=== PATIENT | female | born 2000 | race Caucasian/White ===

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

== ENCOUNTER 2021-03-22 05:51 | Emergency (ER) | payer OTHER, SELFPAY ==
--- NOTE | ~2021-03-22 | XR_ITS ---
XR chest 1V portable INDICATION: Chest pain TECHNIQUE: 2 view chest. FINDINGS: Comparison to multiple prior studies sequentially, with oldest reviewed study dated 006. There is mild left interstitial prominence and peribronchial cuffing. There is no focal consolidatio n, pleural effusion, or pneumothorax. The cardiomediastinal silhouette is normal. IMPRESSION: 1. Findings most consistent with bronchiolitis versus an atypical or viral pneumonia. Reviewed, dictated and finalized at location A. [employer] [employer] IMPRESSION: 1. Findings most consistent with bronchiolitis versus an atypical or viral pne [facility].
[2021-03-22 05:54] VITALS: BP 132/79; PULSE 88; RESP 16; TEMP 35.9; O2SAT 100
[2021-03-22 06:09] VITALS: O2SAT 99
--- NOTE | 2021-03-22 07:16 | ED.URI ---
HPI - URI/Sore Throat General Chief Complaint: Upper Respiratory Infection Stated Complaint: cough, fever, chest tightness Time Seen by Provider: 03/22/21 07:08 Source: patient Mode of arrival: ambulatory Limitations: no limitations History of Present Illness HPI Narrative: Patient is a 20-year-old female complaining of cough, nasal congestion, fever and chills that started 5 days ago. Patient states that her middle of her chest hurts when she coughs. Cough is productive, clear yellowish sputum. Patient denies any chest pain, shortness of breath, abdominal pain, nausea, vomiting, diarrhea or rash. Patient states that she is not vaccinated from [place]. Related Data Home Medications Medication Instructions Recorded Confirmed medroxyprogesterone [Depo-Provera] 150 mg IM [id number] 03/14/19 12/21/20 Allergies Allergy/AdvReac Type Severity Reaction Status Date / Time amoxicillin AdvReac Unknown Other Verified 03/22/21 06:00 Review of Systems Review of Systems: All systems reviewed & are unremarkable except as noted in HPI and below Constitutional: Constitutional: Denies body ache(s), Denies excessive sweating, Denies fatigue, Denies headache(s), Denies lethargy, Denies malaise, Denies weakness and Denies weight loss Eyes: Eyes: Denies blurry vision, Denies change in vision and Denies loss of vision ENT: Denies dizziness, Denies ear discharge, Denies headache(s), Denies lip swelling, Denies epistaxis, Denies nasal congestion, Denies neck pain, Denies throat swelling and Denies tongue swelling Cardiovascular: Cardiovascular: Denies chest pain, Denies chest pain at rest, Denies chest pain with activity, Denies diaphoresis, Denies rapid heart rate, Denies edema, Denies irregular heart rhythm, Denies lightheadedness, Denies palpitations, Denies dyspnea and Denies dyspnea on exertion Respiratory: Respiratory: Denies chest congestion, Denies hemoptysis, Denies dyspnea and Denies dyspnea on exertion Gastrointestinal: Gastrointestinal: Denies abdominal pain, Denies melena, Denies hematochezia, Denies diarrhea, Denies nausea, Denies vomiting and Denies hematemesis Musculoskeletal: Musculoskeletal: Denies abnormal gait, Denies deformity, Denies joint swelling, Denies limited range of motion, Denies neck pain and Denies numbness Neurologic: Denies Abnormal speech present, Denies abnormal gait, Denies confusion, Denies dizziness, Denies headache(s), Denies focal weakness, Denies loss of vision, Denies numbness, Denies Other visual disturbances, Denies Sensory deficit (Neuro) and Denies weakness Psychiatric: Psychiatric: Denies confusion, Denies depression, Denies auditory hallucinations, Denies homicidal ideation and Denies suicidal ideation Endocrine: Endocrine: Denies cold intolerance, Denies excessive sweating, Denies fatigue, Denies heat intolerance and Denies palpitations Hematologic/Lymphatic: Hematologic/Lymphatic: Denies easy bleeding and Denies easy bruising Allergic/Immunologic: Allergic/Immunologic: Denies lip swelling, Denies throat swelling and Denies tongue swelling PMFSH Past Medical History Medical History GERD (gastroesophageal reflux disease) Surgical History Surgical History History of adenoidectomy History of ear surgery RT Hx of tonsillectomy Family History Family History Father Learning disabilities Diabetes mellitus Mother Cerebral palsy Diabetes mellitus Social History Social History Smoking status: Never smoker Tobacco type: cigarettes Second hand tobacco smoke exposure: No Alcohol intake: never Substance use: current Substance use type: marijuana Gender identity (if verbalized by the patient): Female Sexual Orientation (if Verbalized by the Patient): Straight or Het
[2021-03-22 07:19] VITALS: BP 127/85; PULSE 72; RESP 21; O2SAT 98
[2021-03-22 08:51] VITALS: BP 124/85; PULSE 86; RESP 19; O2SAT 100
[2021-03-22 10:45] LABS: SARS-CoV-2 RNA PCR Positive
== END 2021-03-22 08:52 | disposition home or self-care (01) ==
PROVIDERS: Emergency Provider Emergency Medicine
DX: U07.1 COVID-19 (principal); J06.9 Acute upper respiratory infection, unspecified; K21.9 Gastro-esophageal reflux disease without esophagitis; R91.8 Other nonspecific abnormal finding of lung field
CPT/HCPCS: 71045; 87804; 99283; C9803; U0003; U0005

== ENCOUNTER 2021-03-22 19:13 | Emergency (ER) | payer OTHER, SELFPAY ==
[2021-03-22 19:27] VITALS: BP 156/102; PULSE 120; RESP 18; TEMP 37.9; O2SAT 100
--- NOTE | 2021-03-22 21:20 | ED.GENADULT ---
HPI - General Adult General Chief complaint: Upper Respiratory Infection Stated complaint: COVID+ DOESN'T FEEL GOOD Time Seen by Provider: 03/22/21 21:08 Source: patient and RN notes reviewed History of Present Illness HPI narrative: Patient is a 20 y/o female complaining of cough with clear phlegm for about 5 days. There is no alleviating or exacerbating factor. She also has fever, chills, sore throat, vomiting and diarrhea. She tested positive for COVID today. She has not been vaccinated against COVID. Related Data Home Medications Medication Instructions Recorded Confirmed medroxyprogesterone [Depo-Provera] 150 mg IM [id number] 03/14/19 12/21/20 Allergies Allergy/AdvReac Type Severity Reaction Status Date / Time No Known Allergies Allergy Verified 03/22/21 19:30 Review of Systems Constitutional: Constitutional: Reports chills, Reports fatigue, Reports fever(s), Denies headache(s) and Denies weakness Eyes: Eyes: Denies blurry vision ENT: Denies headache(s), Denies neck pain and Reports sore throat Cardiovascular: Cardiovascular: Denies chest pain and Denies dyspnea Respiratory: Respiratory: Reports cough and Denies dyspnea Gastrointestinal: Gastrointestinal: Reports abdominal pain, Reports diarrhea, Reports nausea and Reports vomiting Genitourinary: Genitourinary: Denies hematuria and Denies dysuria Musculoskeletal: Musculoskeletal: Denies back pain and Denies neck pain Neurologic: Denies headache(s) and Denies weakness PMFSH Past Medical History Medical History GERD (gastroesophageal reflux disease) Surgical History Surgical History History of adenoidectomy History of ear surgery RT Hx of tonsillectomy Family History Family History Father Learning disabilities Diabetes mellitus Mother Cerebral palsy Diabetes mellitus Social History Social History Smoking status: Never smoker Tobacco type: cigarettes Second hand tobacco smoke exposure: No Alcohol intake: never Substance use: current Substance use type: marijuana Gender identity (if verbalized by the patient): Female Sexual Orientation (if Verbalized by the Patient): Straight or Heterosexual Exam Const: General: no acute distress and well developed Orientation/consciousness: oriented to person, oriented to place, oriented to time and patient oriented x3 HENMT: Head: normocephalic Ears: external ears normal General nose exam: Normal external nose present Eyes: General: appearance normal, both eyes and all related structures Conjunctivae: conjunctivae normal Neck: Neck: normal visual inspection and full ROM Chest: Chest palpation & inspection: normal inspection of the chest and no tenderness Resp: Effort & Inspection: normal respiratory effort Auscultation: clear to auscultation bilaterally Cardio: Rate: tachycardic Rhythm: regular rhythm GI: GI Palp: No abdominal tenderness and Yes Soft to palpation Skin: General skin exam: normal color and turgor normal Neuro: General: oriented to person, oriented to place, oriented to time and patient oriented x3 Cognition (Neuro): normal cognition Extrem: General: normal to inspection, full ROM and no pedal edema Psych: Appearance: grossly normal Mental Status: mental status grossly normal Affect: normal affect Course Vital Signs Vital signs: Vital Signs Temperature 37.9 C H 03/22/21 19:27 Pulse Rate 120 H 03/22/21 19:27 Respiratory Rate 18 03/22/21 19:27 Blood Pressure 156/102 H 03/22/21 19:27 Pulse Oximetry 100 03/22/21 19:27 Temperature 37.7 C H 03/22/21 22:27 Pulse Rate 108 H 03/22/21 22:27 Respiratory Rate 20 03/22/21 22:27 Blood Pressure 128/70 03/22/21 22:27 Pulse Oximetry 98 03/22/21 22:27 Medical Decision
[2021-03-22] MEDS: ACETAMINOPHEN 325 MG TABLET 650 MG PO (21:25)
[2021-03-22] MEDS: SODIUM CHLORIDE 0.9% IV 1,000 ML 999 ML IV CONT (21:42)
[2021-03-22] MEDS: ONDANSETRON INJ 4 MG/2 ML VIAL IV PUSH (21:42)
[2021-03-22 21:47] LABS: Basophils Percent Auto 0.2 % (0.2-1.2); Eosinophils Absolute Auto 0.2 K/mm3 (0-0.3); Eosinophils Percent Auto 1.3 % (0-4.4); Hematocrit 40.2 % (37.0-47.0); Hemoglobin 13.3 g/dL (12.0-15.0); Immature Granulocyte Absolute 0.02 K/mm3 (0.00-0.031); Immature Granulocyte Percent A 0.2 % (0-0.5); Lymphocytes Absolute Auto 1.27 K/mm3 (0.9-3.2); Lymphocytes Percent Auto 10.6 % (18.3-44.2); Mean Corpuscular HGB Conc 33.1 g/dl (32-36); Mean Corpuscular Hemoglobin 29.9 pg (26-34); Mean Corpuscular Volume 90.3 fl (80-100); Mean Platelet Volume 10.2 fl (7.4-10.4); Monocytes Absolute Auto 0.8 K/mm3 (0.1-0.6); Monocytes Percent Auto 6.9 % (2.6-8.5); Neutrophils Absolute Auto 9.7 K/mm3 (1.3-6.7); Neutrophils Percent Auto 80.8 % (45.5-73.1); Platelet Count Result 171 k/mm3 (150-375); Red Blood Count 4.45 M/mm3 (4.2-5.4); Red Cell Distribution Width 12.5 % (11.5-14.5)
[2021-03-22 21:55] VITALS: TEMP 37.7
[2021-03-22 21:57] LABS: Alanine Aminotransferase 24 U/L (4-35); Albumin Level 4.8 g/dL (3.7-5.6); Alkaline Phosphatase 85 U/L (45-116); Anion Gap 12 mmol/L (8-16); Aspartate Amino Transferase 25 U/L (14-36); Bilirubin,Total 0.4 mg/dL (0.2-1.3); Blood Urea Nitrogen 5 mg/dL (8-21); Calcium 9.5 mg/dL (8.9-10.7); Carbon Dioxide 22 mmol/L (22-30); Chloride 103 mmol/L (98-107); Estimated CRCL calculation 119 ml/min; Estimated Glomerular Filt Rate > 60; Glucose 105 mg/dL (65-110); Potassium 3.6 mmol/L (3.4-5.0); Sodium 137 mmol/L (134-143)
[2021-03-22 21:59] LABS: Add Urine Microscopic? NO; Appearance Urine Clear (Clear); Bilirubin Urine Negative (Negative); Blood Urine Negative (Negative); Color Urine Yellow (Yellow); Glucose Urine UA Negative (Negative); Ketones Urine Negative (Negative); Leukocyte Esterase Ur Negative LEU/UL (Negative); Nitrate Urine Negative (Negative); Protein Urine Negative (Negative); Urobilinogen Urine Negative mg/dL (<2.0)
[2021-03-22 22:09] LABS: Specific Grav Ur 1.004 (1.001-1.035)
[2021-03-22 22:27] VITALS: BP 128/70; PULSE 108; RESP 20; TEMP 37.7; O2SAT 98
== END 2021-03-22 23:36 | disposition home or self-care (01) ==
PROVIDERS: Emergency Provider Emergency Medicine
DX: U07.1 COVID-19 (principal); J12.82 Pneumonia due to coronavirus disease 2019; R11.10 Vomiting, unspecified; R19.7 Diarrhea, unspecified; K21.9 Gastro-esophageal reflux disease without esophagitis
CPT/HCPCS: 36415; 71045; 80053; 81003; 81025; 85025; 87081; 87804; 87880; 96361; 96374; 99283; 99284; A9270; C9803; J2405; J7030; U0003; U0005

== ENCOUNTER 2021-05-29 17:28 | Emergency (ER) | payer OTHER, SELFPAY ==
[2021-05-29 17:38] VITALS: BP 132/70; PULSE 89; RESP 16; TEMP 37; O2SAT 100
[2021-05-29 17:40] VITALS: BP 132/70; PULSE 89; RESP 16; TEMP 37; O2SAT 100
--- NOTE | 2021-05-29 18:04 | ED.SKABFB ---
HPI - Skin/Abscess/Foreign Bdy General Chief complaint: Skin/Abscess/Foreign Body Stated complaint: Mites Time Seen by Provider: 05/29/21 18:04 Source: patient Mode of arrival: ambulatory Limitations: no limitations History of Present Illness HPI narrative: 20-year-old female presents with generalized itching for 2 to 3 days. States that her cat has mites, did a topical treatment but cat is still itching. Patient states that this cat sleeps with her in her bed. States that she cannot see any bites but that she is itching all over. All systems reviewed and negative except as noted above. Related Data Allergies Allergy/AdvReac Type Severity Reaction Status Date / Time No Known Allergies Allergy Verified 05/29/21 17:38 Review of Systems Review of Systems: CONSTITUTIONAL: Denies fever, chills, or sweats. EYES: Denies visual changes, redness, or discharge. ENT: Denies rhinorrhea, congestion, sore throat, or otalgia. CARDIOVASCULAR: Denies chest pain, palpitations, or edema. RESPIRATORY: Denies cough or dyspnea. GASTROINTESTINAL: Denies abdominal pain, nausea, vomiting, or diarrhea. GENITOURINARY: Denies dysuria or hematuria. SKIN: Denies rash. Reports itching MUSCULOSKELETAL: Denies back pain, joint pain, or myalgia. NEUROLOGIC: Denies headache, numbness, or weakness. PSYCHIATRIC: Denies anxiety or depression. All other systems reviewed are negative, except as documented in HPI. [facility] Past Medical History Medical History GERD (gastroesophageal reflux disease) Surgical History Surgical History History of adenoidectomy History of ear surgery RT Hx of tonsillectomy Family History Family History Father Learning disabilities Diabetes mellitus Mother Cerebral palsy Diabetes mellitus Social History Social History Smoking status: Never smoker Tobacco type: cigarettes Second hand tobacco smoke exposure: No Alcohol intake: never Substance use: current Substance use type: marijuana Gender identity (if verbalized by the patient): Female Sexual Orientation (if Verbalized by the Patient): Straight or Heterosexual Comments At time of signature, agree with nursing past medical, surgical, social and family history. There is no relevant family history pertinent to the presenting complaint. Exam Narrative: GENERAL: This is a well-nourished, well-developed patient, in no apparent distress. HEAD: normocephalic, atraumatic. EYES: PERRL. Sclera clear/white. Vision is grossly intact. EARS: External ears normal NOSE: External nose normal THROAT: Mucous membranes moist NECK: Neck supple, non-tender without lymphadenopathy, masses or thyromegaly. CARDIOVASCULAR: Regular rate RESPIRATORY: Regular rate SKIN: warm, Dry, intact with no suspicious lesions or rash, good texture and turgor. Excoriation noted from patient's scratching but no rash noted. NEURO: awake, alert, and oriented to person, place and time. There were no obvious focal neurologic abnormalities. EXTREMITIES: Normal range of motion to all extremities. Course Course Level of Care: Express Care Visit Vital Signs Vital signs: Vital Signs Temperature 37.0 C 05/29/21 17:38 Pulse Rate 89 05/29/21 17:38 Respiratory Rate 16 05/29/21 17:38 Blood Pressure 132/70 05/29/21 17:38 Pulse Oximetry 100 05/29/21 17:38 Temperature 37.0 C 05/29/21 17:40 Pulse Rate 89 05/29/21 17:40 Respiratory Rate 16 05/29/21 17:40 Blood Pressure 132/70 05/29/21 17:40 Pulse Oximetry 100 05/29/21 17:40 Reviewed MDM - Skin/Abscess/Foreign Bdy MDM Narrative Medical decision making narrative: Recommend patient follow-up with her that and have Treated for mites again before she uses permethrin cream. Patient is aware of diagnosis, u
== END 2021-05-29 18:17 | disposition home or self-care (01) ==
PROVIDERS: Emergency Provider Nurse Practitioner Family
DX: B88.9 Infestation, unspecified (principal); K21.9 Gastro-esophageal reflux disease without esophagitis
CPT/HCPCS: 99213; G0463

== ENCOUNTER 2021-09-19 15:01 | Emergency (ER) | payer OTHER, SELFPAY ==
--- NOTE | ~2021-09-19 | XR_ITS ---
EXAM: XR foot RT min 3V DATE: 09/19/2021 15:30 HISTORY: rt distal 4th and 5th metatasals pain x 2 days . COMPARISON: None available. FINDINGS: Normal mineralization. No fracture or dislocation. No lytic or blastic lesion. Joint space s are maintained. No erosion or periosteal change. Soft tissues within normal limits. IMPRESSION: No acute osseous finding in the right foot. Reviewed, dictated and finalized at location K.
[2021-09-19 15:09] VITALS: BP 116/82; PULSE 90; RESP 16; TEMP 36.6; O2SAT 100
--- NOTE | 2021-09-19 15:11 | ED.EXTPRO ---
HPI - Extremity Problem General Chief complaint: Extremity Injury, Lower Stated complaint: right foot pain Time Seen by Provider: 09/19/21 15:11 Source: patient and RN notes reviewed Mode of arrival: ambulatory Limitations: no limitations History of Present Illness HPI Narrative: 21-year-old female presents to the [facility] with complaints of right foot pain for 2 days. Patient denies any injury. Reports that she has pain to the fourth fifth metatarsals distal aspect. No bruising, swelling noted. Reports tenderness along the fifth metatarsal Requesting a work note Related Data Home Medications Medication Instructions Recorded Confirmed medroxyprogesterone 150 mg/mL 1 syr IM [id number] 09/19/21 09/19/21 intramuscular syringe Allergies Allergy/AdvReac Type Severity Reaction Status Date / Time No Known Allergies Allergy Verified 09/19/21 15:02 Review of Systems Review of Systems: All systems reviewed & are unremarkable except as noted in HPI and below Constitutional: Constitutional: Reports no additional constitutional complaints, Denies chills and Denies fever(s) Eyes: Eyes: Reports no additional eye complaints ENT: Reports system reviewed and no additional complaints, except as documented Cardiovascular: Cardiovascular: Reports no additional cardiovascular complaints Respiratory: Respiratory: Reports no additional respiratory complaints Gastrointestinal: Gastrointestinal: Reports no additional gastrointestinal complaints Musculoskeletal: Musculoskeletal: Reports as per HPI (Foot pain) Integumentary/Breasts: Skin/Breast: Reports system reviewed and no additional complaints, except as docu Neurologic: Reports system reviewed and no additional complaints, except as documented Psychiatric: Psychiatric: Reports no additional psychiatric complaints Allergic/Immunologic: Allergic/Immunologic: Reports no additional allergic/immunologic complaints [facility] Past Medical History Medical History GERD (gastroesophageal reflux disease) Surgical History Surgical History History of adenoidectomy History of ear surgery RT Hx of tonsillectomy Family History Family History Father Learning disabilities Diabetes mellitus Mother Cerebral palsy Diabetes mellitus Social History Social History Smoking status: Never smoker Tobacco type: cigarettes Second hand tobacco smoke exposure: No Alcohol intake: never Substance use: current Substance use type: marijuana Gender identity (if verbalized by the patient): Female Sexual Orientation (if Verbalized by the Patient): Straight or Heterosexual Comments At the time of my signature, I reviewed and agree with the nursing past medical, surgical, social, and family history. There is no relevant family history pertinent to the patient complaint. Exam Const: General: healthy appearing, no acute distress and alert Nutritional Appearance: well nourished Orientation/consciousness: patient oriented x3 Limitations: no limitations HENMT: Head: normal to inspection Ears: external ears normal Eyes: General: appearance normal, both eyes and all related structures Pupils: Equal, round and reactive pupils present Neck: Neck: normal visual inspection, no lymphadenopathy and no meningeal signs Chest: Chest palpation & inspection: normal inspection of the chest Resp: Effort & Inspection: normal respiratory effort and no use of accessory muscles Auscultation: clear to auscultation bilaterally, no crackles, no rales, no rhonchi and no wheezes Cardio: Rate: regular rate Rhythm: regular rhythm Back/Spine/Pelvis: Cervical Spine: normal cervical lordosis Thoracic/Lumbar Spine: thoracic and lumbar spine normal to inspection Skin: General sk
== END 2021-09-19 16:22 | disposition home or self-care (01) ==
PROVIDERS: Emergency Provider Nurse Practitioner
DX: M79.671 Pain in right foot (principal); K21.9 Gastro-esophageal reflux disease without esophagitis
CPT/HCPCS: 73630; 99213; G0463

== ENCOUNTER 2022-01-01 10:03 | Emergency (ER) | payer OTHER, SELFPAY ==
[2022-01-01 10:12] VITALS: BP 122/73; PULSE 89; RESP 18; TEMP 36.6; O2SAT 97
--- NOTE | 2022-01-01 10:14 | ED.FEMALEGU ---
HPI - Female Genitourinary General Chief complaint: Urogenital-Female Stated complaint: bladder infection Time Seen by Provider: 01/01/22 10:19 Source: patient and RN notes reviewed Mode of arrival: ambulatory Limitations: no limitations History of Present Illness HPI Narrative: 21-year-old female presents to the [facility] with complaints UTI. Has a history of UTIs after having sex. Patient states that she started with the urgency, frequency and burning 3-4 days ago. States that she normally takes preventative medication after having sex that was prescribed by Dr. Rendon. Denies fevers. Reports suprapubic cramping. Has taken azo Related Data Home Medications Medication Instructions Recorded Confirmed medroxyprogesterone 150 mg/mL 1 syr IM [id number] 09/19/21 09/19/21 intramuscular syringe Allergies Allergy/AdvReac Type Severity Reaction Status Date / Time No Known Allergies Allergy Verified 09/19/21 15:02 Review of Systems Review of Systems: All systems reviewed & are unremarkable except as noted in HPI and below Constitutional: Constitutional: Reports no additional constitutional complaints, Denies chills and Denies fever(s) Eyes: Eyes: Reports no additional eye complaints ENT: Reports system reviewed and no additional complaints, except as documented Cardiovascular: Cardiovascular: Reports no additional cardiovascular complaints Respiratory: Respiratory: Reports no additional respiratory complaints Gastrointestinal: Gastrointestinal: Reports no additional gastrointestinal complaints Genitourinary: Genitourinary: Reports as per HPI, Reports nocturia, Reports dysuria and Denies vaginal discharge Musculoskeletal: Musculoskeletal: Reports no additional musculoskeletal complaints Integumentary/Breasts: Skin/Breast: Reports system reviewed and no additional complaints, except as docu Neurologic: Reports system reviewed and no additional complaints, except as documented Psychiatric: Psychiatric: Reports no additional psychiatric complaints Allergic/Immunologic: Allergic/Immunologic: Reports no additional allergic/immunologic complaints PMFSH Past Medical History Medical History GERD (gastroesophageal reflux disease) Surgical History Surgical History History of adenoidectomy History of ear surgery RT Hx of tonsillectomy Family History Family History Father Learning disabilities Diabetes mellitus Mother Cerebral palsy Diabetes mellitus Social History Social History Smoking status: Never smoker Tobacco type: cigarettes Second hand tobacco smoke exposure: No Alcohol intake: never Substance use: current Substance use type: marijuana Gender identity (if verbalized by the patient): Female Sexual Orientation (if Verbalized by the Patient): Straight or Heterosexual Comments At the time of my signature, I reviewed and agree with the nursing past medical, surgical, social, and family history. There is no relevant family history pertinent to the patient complaint. Exam Const: General: healthy appearing, no acute distress, alert and well nourished Nutritional Appearance: well nourished Orientation/consciousness: patient oriented x3 Limitations: no limitations HENMT: Head: normal to inspection Ears: external ears normal, TM's normal bilaterally and EAC's normal Face/Nose/Sinus: Normal external nose present Face and sinus: normal facial exam Mouth: Yes Normal oral and palatal mucosa present, Yes lip normal and Yes moist mucous membranes Throat: posterior oropharynx normal and uvula midline Eyes: General: appearance normal, both eyes and all related structures Conjunctivae: conjunctivae normal Pupils: Equal, round and reactive pupils present Neck: Neck: no
== END 2022-01-01 10:42 | disposition home or self-care (01) ==
PROVIDERS: Emergency Provider Nurse Practitioner
DX: N39.0 Urinary tract infection, site not specified (principal); K21.9 Gastro-esophageal reflux disease without esophagitis
CPT/HCPCS: 81003; 87086; 99213; G0463

== ENCOUNTER 2022-02-22 10:32 | Emergency (ER) | payer OTHER, SELFPAY ==
[2022-02-22 11:14] VITALS: BP 128/75; PULSE 89; RESP 16; TEMP 37.4; O2SAT 99
--- NOTE | 2022-02-22 11:37 | ED.URI ---
HPI - URI/Sore Throat General Chief Complaint: Upper Respiratory Infection Stated Complaint: Cough,Running Nose, Bodyaches Source: patient Mode of arrival: ambulatory Limitations: no limitations History of Present Illness HPI Narrative: 21-year-old female presents to [facility] with complaints of cough, headache, body aches, chills, fever and intermittent diarrhea for the past 4 days. Patient has been taking [id number] Motrin, cough drops and cold medication with minimal relief. Patient denies nausea or vomiting. Patient reports that she did take a negative COVID test at home yesterday. Patient is a smoker. MD elicited complaint: fever, cough, rhinorrhea and nasal congestion Onset (ago): day(s) (4) Able to tolerate fluids by mouth: Yes Relieving factors: nothing Treatments prior to arrival: acetaminophen, ibuprofen and cold medicine Related Data Home Medications Medication Instructions Recorded Confirmed medroxyprogesterone 150 mg/mL 1 syr IM [id number] 09/19/21 02/22/22 intramuscular syringe Allergies Allergy/AdvReac Type Severity Reaction Status Date / Time No Known Allergies Allergy Verified 02/22/22 11:23 Review of Systems Constitutional: Constitutional: Reports chills, Reports fatigue, Reports fever(s) and Denies weakness ENT: Denies vertigo and Denies dizziness Cardiovascular: Cardiovascular: Denies chest pain, Denies rapid heart rate, Denies radiating jaw, neck or arm pain and Denies slow heart rate Respiratory: Respiratory: Reports chest congestion, Reports cough, Denies dyspnea and Denies wheezing Gastrointestinal: Gastrointestinal: Denies diarrhea, Denies nausea and Denies vomiting Integumentary/Breasts: Skin/Breast: Denies rash Allergic/Immunologic: Allergic/Immunologic: Denies lip swelling, Denies throat swelling and Denies tongue swelling PMF Past Medical History Medical History GERD (gastroesophageal reflux disease) Surgical History Surgical History History of adenoidectomy History of ear surgery RT Hx of tonsillectomy Family History Family History Father Learning disabilities Diabetes mellitus Mother Cerebral palsy Diabetes mellitus Social History Social History (Reviewed 02/22/22 @ 11:42 by ABDI Yepez Smoking status: Never smoker Tobacco type: cigarettes Second hand tobacco smoke exposure: No Alcohol intake: never Substance use: current Substance use type: marijuana Gender identity (if verbalized by the patient): Female Sexual Orientation (if Verbalized by the Patient): Straight or Heterosexual Comments At time of signature, I agree with nursing past medical, surgical, social and family history. There is no relevant family history pertinent to the presenting complaint. Exam Const: General: healthy appearing and no acute distress Nutritional Appearance: well nourished Orientation/consciousness: patient oriented x3 Limitations: no limitations HENMT: Head: normal to inspection Ears: external ears normal and TM's normal bilaterally Face/Nose/Sinus: Normal external nose present and Nasal discharge present clear bilateral Mouth: Yes moist mucous membranes Throat: posterior oropharynx normal and uvula midline Other: Moderate nasal congestion noted. Neck: Neck: normal visual inspection Resp: Effort & Inspection: normal respiratory effort and not labored Auscultation: clear to auscultation bilaterally, no crackles, no rales and no rhonchi Cardio: Rate: regular rate Rhythm: regular rhythm Heart sounds: no murmurs Skin: General skin exam: normal color Rashes: no rashes Wounds: no wounds Neuro: General: patient oriented x3 Psych: Affect: normal affect Attitude: cooperative Course Course Level of Care: Express Care Visit Vital Signs Vital signs:
== END 2022-02-22 12:21 | disposition home or self-care (01) ==
PROVIDERS: Emergency Provider Nurse Practitioner Family
DX: J32.9 Chronic sinusitis, unspecified (principal); Z20.822 Contact with and (suspected) exposure to COVID-19; K21.9 Gastro-esophageal reflux disease without esophagitis; F12.90 Cannabis use, unspecified, uncomplicated
CPT/HCPCS: 87426; 87804; 99213; C9803; G0463

== ENCOUNTER 2022-10-07 19:43 | Emergency (ER) | payer OTHER, SELFPAY ==
[2022-10-07 19:50] VITALS: BP 145/74; PULSE 99; RESP 16; TEMP 37.3; O2SAT 100
--- NOTE | 2022-10-07 20:01 | ED.EYEPROB ---
HPI - Eye Problem General Chief complaint: Eye Problems Stated complaint: right eye irritation Source: patient Mode of arrival: ambulatory Limitations: no limitations History of Present Illness HPI Narrative: 22-year-old female presented for complaints of right eye redness, irritation, and drainage worsening throughout today. 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 Denies photophobia, vision changes, or drainage. chief complaint: eye pain Related Data Home Medications Medication Instructions Recorded Confirmed medroxyprogesterone 150 mg/mL 1 syr IM [id number] 09/19/21 02/22/22 intramuscular syringe Allergies Allergy/AdvReac Type Severity Reaction Status Date / Time No Known Allergies Allergy Verified 02/22/22 11:23 Review of Systems Review of Systems: CONSTITUTIONAL: Denies body aches, fever, chills EYES:Endorses swelling, redness and pain to right eye; denies FB sensation, photophobia, visual changes ENT: Denies rhinorrhea, congestion, sore throat, or otalgia. CARDIOVASCULAR: Denies chest pain, palpitations RESPIRATORY: Denies cough or dyspnea. GASTROINTESTINAL: Denies abdominal pain, nausea, vomiting, or diarrhea. SKIN: Denies rash, itching, or wounds. MUSCULOSKELETAL: Denies back pain, joint pain, or myalgia. NEUROLOGIC: Denies headache, numbness, tingling, or weakness. All systems reviewed & are unremarkable except as noted in HPI and below PMFSH Past Medical History Medical History GERD (gastroesophageal reflux disease) Surgical History Surgical History History of adenoidectomy History of ear surgery RT Hx of tonsillectomy Family History Family History Father Learning disabilities Diabetes mellitus Mother Cerebral palsy Diabetes mellitus Social History Social History Smoking status: Never smoker Tobacco type: cigarettes Second hand tobacco smoke exposure: No Alcohol intake: never Substance use: current Substance use type: marijuana Living arrangements: with family Occupation/Education: occupation Gender identity (if verbalized by the patient): Female Sexual Orientation (if Verbalized by the Patient): Straight or Heterosexual Comments At time of signature, I have reviewed and agree with nursing past medical, surgical, social and family history unless otherwise noted. Please see nursing chart for further information. There is no relevant family history pertinent to the presenting complaint Exam Narrative: GENERAL: Well-appearing HEAD: Normocephalic, atraumatic. EYES: right conjunctival injection, purulent drainage, mild eye lid swelling/redness; PERRLA, EOMI. Lid eversion shows no FB. ENT: Mucous membranes pink and moist. No rhinorrhea. TMs normal bilaterally. Throat normal. Uvula midline. CHEST: Clear to auscultation. HEART: Regular rate and rhythm. ABDOMEN: Soft, nontender, nondistended SKIN: Warm, dry, no rash. Normal skin turgor. NEURO: No focal deficits. Alert and oriented x3 PSYCH: Normal affect. Course Course Emergency Course: Patient is aware of diagnosis, understands and agrees to treatment plan. Anticipatory guidance given. Patient agrees to follow-up as directed and is aware of reasons to seek care at the emergency department. Portions of this record may have been created with voice recognition software Level of Care: Express Care Visit Vital Signs Vital signs: Vital Signs Temperature 99.2 F 10/07/22 19:50 Pulse Rate 99 10/07/22 19:50 Respiratory Rate 16 10/07/22 19:50 Blood Pressure 145/74 H 10/07/22 19:50 Pulse Oximetry 100 10/07/22 19:50 Oxygen Delivery Room Air 10/07/22 19:50 Temperature 99.2 F 10/07/22 19:50 Pulse Rate 99 10/07/22
== END 2022-10-07 20:07 | disposition home or self-care (01) ==
PROVIDERS: Emergency Provider Nurse Practitioner Family; PCP Emergency Medicine
DX: H10.9 Unspecified conjunctivitis (principal); F12.90 Cannabis use, unspecified, uncomplicated; K21.9 Gastro-esophageal reflux disease without esophagitis
CPT/HCPCS: 99213; G0463

== ENCOUNTER 2022-10-14 15:26 | Emergency (ER) | payer OTHER, SELFPAY ==
[2022-10-14 15:34] VITALS: BP 136/78; PULSE 100; RESP 16; TEMP 36.8; O2SAT 100
--- NOTE | 2022-10-14 15:43 | ED.FEMALEGU ---
HPI - Female Genitourinary General Chief complaint: Urogenital-Female Stated complaint: urinary issue Time Seen by Provider: 10/14/22 15:40 Source: patient Mode of arrival: ambulatory Limitations: no limitations History of Present Illness HPI Narrative: Patient is a 22-year-old female who presents with 3 days of frequency, urgency and burning with urination. Patient has history of frequent UTIs and has been seen by urologist on several occasions. Patient takes daily [id number] medication to help prevent bladder infections but recently ran out. Patient has also had lock in the past using azo. Denies any low back pain, fever, chills, nausea, vomiting, diarrhea. MD elicited complaint: dysuria Related Data Home Medications Medication Instructions Recorded Confirmed medroxyprogesterone 150 mg/mL 1 syr IM [id number] 09/19/21 10/14/22 intramuscular syringe Allergies Allergy/AdvReac Type Severity Reaction Status Date / Time No Known Allergies Allergy Verified 10/14/22 15:56 Review of Systems Review of Systems: All systems reviewed & are unremarkable except as noted in HPI and below Constitutional: Constitutional: Denies chills, Denies fever(s), Denies headache(s), Denies malaise and Denies weakness Eyes: Eyes: Denies change in vision, Denies eye discharge and Denies irritation ENT: Denies otalgia, Denies headache(s), Denies nasal congestion, Denies nasal discharge, Denies sinus pain and Denies sore throat Cardiovascular: Cardiovascular: Denies chest pain, Denies edema, Denies palpitations and Denies dyspnea Respiratory: Respiratory: Denies cough and Denies dyspnea Gastrointestinal: Gastrointestinal: Denies abdominal pain, Denies diarrhea, Denies nausea and Denies vomiting Genitourinary: Genitourinary: Denies hematuria, Reports nocturia, Reports dysuria, Denies flank pain and Reports urinary urgency Musculoskeletal: Musculoskeletal: Denies back pain and Denies numbness Integumentary/Breasts: Skin/Breast: Denies pruritus and Denies rash Neurologic: Denies headache(s), Denies numbness and Denies weakness Psychiatric: Psychiatric: Reports no additional psychiatric complaints Endocrine: Endocrine: Denies palpitations PMFSH Past Medical History Medical History GERD (gastroesophageal reflux disease) Surgical History Surgical History History of adenoidectomy History of ear surgery RT Hx of tonsillectomy Family History Family History Father Learning disabilities Diabetes mellitus Mother Cerebral palsy Diabetes mellitus Social History Social History Smoking status: Never smoker Tobacco type: cigarettes Second hand tobacco smoke exposure: No Alcohol intake: never Substance use: current Substance use type: marijuana Living arrangements: with family Occupation/Education: occupation Gender identity (if verbalized by the patient): Female Sexual Orientation (if Verbalized by the Patient): Straight or Heterosexual Comments At time of signature, agree with nursing past medical, surgical, social and family history. There is no relevant family history pertinent to the presenting complaint. Exam Const: General: cooperative, healthy appearing, comfortable, no acute distress and well nourished Nutritional Appearance: well nourished Orientation/consciousness: patient oriented x3 HENMT: Head: normocephalic and atraumatic Ears: external ears normal Face/Nose/Sinus: Normal external nose present, Normal nares present and normal facial exam Face and sinus: normal facial exam Eyes: General: appearance normal, both eyes and all related structures Pupils: Equal, round and reactive pupils present EOM: EOMs intact bilaterally Neck: Neck: normal visual inspection, f
== END 2022-10-14 16:26 | disposition home or self-care (01) ==
PROVIDERS: Emergency Provider Nurse Practitioner Family; PCP Family Medicine
DX: R30.0 Dysuria (principal); F12.90 Cannabis use, unspecified, uncomplicated; K21.9 Gastro-esophageal reflux disease without esophagitis
CPT/HCPCS: 81003; 87077; 87086; 87186; 99213; G0463

== ENCOUNTER 2022-12-05 19:27 | Emergency (ER) | payer OTHER, SELFPAY ==
[2022-12-05 19:36] VITALS: BP 115/63; PULSE 90; RESP 16; TEMP 36.8; O2SAT 95
--- NOTE | 2022-12-05 19:49 | ED.ABDPAIN ---
HPI - Abdominal Pain General Chief Complaint: Abdominal Pain Stated Complaint: Possible Food Poisoning Time Seen by Provider: 12/05/22 19:42 Source: patient, RN notes reviewed and old records reviewed Mode of arrival: ambulatory Limitations: no limitations History of Present Illness HPI narrative: 22-year-old female who presents to [facility] complaints of eating a burrito and 9:00 a.m. this morning then took a nap and awoke at noon with nausea vomiting and diarrhea since then. Patient reports that she also has had 3 days of burning and frequency of urination and has been taking AZO. Patient reports thistory of UTI infections in past. Patient denies any fevers, chills or sweats or any body aches. MD elicited complaint: abdominal pain (nausea vomiting and diarrhea. 3 days of urinary burning and frequency.) Pertinent past history: past UTI Onset (ago): day(s) (3 days UTI symptoms, noon today N/V/D) Location: epigastric Pain scale (0-10): 7 Quality: aching Associated symptoms: nausea, vomiting and diarrhea Treatments prior to arrival: other (has been taking AZO) Related Data Home Medications Medication Instructions Recorded Confirmed medroxyprogesterone 150 mg/mL 1 syr IM [id number] 09/19/21 12/05/22 intramuscular syringe Allergies Allergy/AdvReac Type Severity Reaction Status Date / Time No Known Allergies Allergy Verified 12/05/22 19:35 Review of Systems Review of Systems: CONSTITUTIONAL: Denies fever, chills, or sweats. ENT: Denies rhinorrhea, congestion, sore throat, or otalgia. CARDIOVASCULAR: Denies chest pain, palpitations, or edema. RESPIRATORY: Denies cough or dyspnea. GASTROINTESTINAL: Reports abdominal pain epigastric area, nausea, vomiting, diarrhea. GENITOURINARY: Reports dysuria and frequency,no hematuria. SKIN: Denies rash or itching. MUSCULOSKELETAL: Denies back pain, joint pain, or myalgia. NEUROLOGIC: Denies headache, numbness, or weakness. All systems reviewed & are unremarkable except as noted in HPI and below PMFSH Past Medical History Medical History (Updated 12/08/22 @ 10:42 by Yelena Villalta NP) GERD (gastroesophageal reflux disease) UTI (urinary tract infection) Surgical History Surgical History History of adenoidectomy History of ear surgery RT Hx of tonsillectomy Family History Family History Father Learning disabilities Diabetes mellitus Mother Cerebral palsy Diabetes mellitus Social History Social History Smoking status: Never smoker Tobacco type: cigarettes Second hand tobacco smoke exposure: No Alcohol intake: never Substance use: current Substance use type: marijuana Living arrangements: with family Occupation/Education: occupation Gender identity (if verbalized by the patient): Female Sexual Orientation (if Verbalized by the Patient): Straight or Heterosexual Comments At time of signature, agree with nursing past medical, surgical, social and family history. There is no relevant family history pertinent to the presenting complaint Exam Narrative: GENERAL: Well-appearing, well-nourished, and in no acute distress. HEAD: Normocephalic, atraumatic. EYES: PERRLA, conjunctivae clear, and EOMI. ENT: Nares clear. Mucous membranes moist. Oropharynx without edema, erythema, or lesions. Tonsils not enlarged and without exudate. NECK: Supple. No lymphadenopathy CHEST: Speaks in full sentences. No respiratory distress. HEART: Regular rate and rhythm. ABDOMEN: Soft, flat, nondistended. No guarding, rebound tenderness, or rigid. No pulsatilla masses. Bowel sounds present in all four quadrants. No organomegaly. Negative Park?s sign. No periumbilical tenderness. No Supra public tenderness or distension. Good femoral pulses bilaterally. No hernia noted. No scars or surf
[2022-12-05] MEDS: ONDANSETRON HCL ODT 4 MG TABLET SUBLINGUAL (19:56)
== END 2022-12-05 20:24 | disposition home or self-care (01) ==
PROVIDERS: Emergency Provider Registered Nurse
DX: K52.9 Noninfective gastroenteritis and colitis, unspecified (principal); N39.0 Urinary tract infection, site not specified
CPT/HCPCS: 81003; 81025; 87086; 99213; A9270; G0463

== ENCOUNTER → 2023-01-05 12:20 | Outpatient (CLI) | payer OTHER, SELFPAY ==
--- NOTE | ~2023-01-05 | XR_ITS ---
EXAMINATION: XR chest 2V 01/05/2023 12:43 INDICATION: Asthma, cough and wheezing PROCEDURE: 2 view chest COMPARISON: No prior studies for comparison. FINDINGS: The lungs are clear. The cardiomediastinal silhouette is within normal limits. There are no pleural effusions. There is no pneumothorax suspected. IMPRESSION: 1: NO ACUTE CARDIOPULMONARY DISEASE. Reviewed, dictated and finalized at location B.
== END ==
PROVIDERS: PCP Emergency Medicine; Visit Provider Emergency Medicine
DX: J45.909 Unspecified asthma, uncomplicated (principal); R05.9 Cough, unspecified
CPT/HCPCS: 71046

== ENCOUNTER 2023-05-21 17:31 | Emergency (ER) | payer OTHER, SELFPAY ==
[2023-05-21 17:40] VITALS: BP 115/64; PULSE 92; RESP 16; TEMP 36.4; O2SAT 98
--- NOTE | 2023-05-21 18:14 | ED.FEMALEGU ---
HPI - Female Genitourinary General Chief complaint: Urogenital-Female Stated complaint: UTI Time Seen by Provider: 05/21/23 18:01 Source: patient and RN notes reviewed Mode of arrival: ambulatory Limitations: no limitations History of Present Illness HPI Narrative: Patient presents today complaining of dysuria, frequency, and lower abdominal pain since this morning. Denies fever, back pain, or any additional symptoms. She took a dose of azo 1.5 hours prior to exam. History of frequent UTIs. Related Data Allergies Allergy/AdvReac Type Severity Reaction Status Date / Time No Known Allergies Allergy Verified 05/21/23 17:44 Review of Systems Review of Systems: CONSTITUTIONAL: Denies body aches, fever, chills, or sweats. EYES: Denies visual changes, redness, or discharge. ENT: Denies rhinorrhea, congestion, sore throat, or otalgia. CARDIOVASCULAR: Denies chest pain, palpitations, or edema. RESPIRATORY: Denies cough or dyspnea. GASTROINTESTINAL: Denies nausea, vomiting, or diarrhea.+ lower abdominal pain GENITOURINARY: + dysuria, frequency SKIN: Denies rash, itching, or wounds. MUSCULOSKELETAL: Denies back pain, joint pain, or myalgia. NEUROLOGIC: Denies headache, numbness, tingling, or weakness. PSYCH: Denies depression or anxiety. [facility] Past Medical History Medical History GERD (gastroesophageal reflux disease) UTI (urinary tract infection) Surgical History Surgical History History of adenoidectomy History of ear surgery RT Hx of tonsillectomy Family History Family History Father Learning disabilities Diabetes mellitus Mother Cerebral palsy Diabetes mellitus Social History Social History Smoking status: Never smoker Tobacco type: cigarettes Second hand tobacco smoke exposure: No Alcohol intake: never Substance use: current Substance use type: marijuana Living arrangements: with family Occupation/Education: occupation Gender identity (if verbalized by the patient): Female Sexual Orientation (if Verbalized by the Patient): Straight or Heterosexual Comments At time of signature, I have reviewed and agree with nursing past medical, surgical, social and family history unless otherwise noted. Please see nursing chart for further information. There is no relevant family history pertinent to the presenting complaint Exam Narrative: GENERAL: Well-appearing, well-nourished, and in no acute distress. HEAD: Normocephalic, atraumatic. EYES: EOMI. No redness or drainage. Conjunctivae normal. ENT: Mucous membranes pink and moist. NECK: Normal AROM. CHEST: No respiratory distress. Clear to auscultation. HEART: Regular rate and rhythm. No murmur appreciated. ABDOMEN: Soft, nondistended, normal active bowel sounds.+ suprapubic tenderness.-CVAT EXTREMITIES: Normal range of motion. No edema. SKIN: Warm, dry, no rash. Capillary refill normal. Normal skin turgor. NEURO: No focal deficits. Alert and oriented x3. Gait steady. PSYCH: Normal affect. No signs of depression or anxiety. Course Course Level of Care: Express Care Visit Vital Signs Vital signs: Vital Signs Temperature 97.6 F 05/21/23 17:40 Pulse Rate 92 05/21/23 17:40 Respiratory Rate 16 05/21/23 17:40 Blood Pressure 115/64 05/21/23 17:40 Pulse Oximetry 98 05/21/23 17:40 Oxygen Delivery Room Air 05/21/23 17:40 Temperature 97.6 F 05/21/23 17:40 Pulse Rate 92 05/21/23 17:40 Respiratory Rate 16 05/21/23 17:40 Blood Pressure 115/64 05/21/23 17:40 Pulse Oximetry 98 05/21/23 17:40 Oxygen Delivery Room Air 05/21/23 17:40 Reviewed MDM - Female Genitourinary MDM Narrative Medical decision making narrative: Patient's urinalysis is skew
== END 2023-05-21 18:20 | disposition home or self-care (01) ==
PROVIDERS: Emergency Provider Nurse Practitioner; PCP Emergency Medicine
DX: N30.01 Acute cystitis with hematuria (principal); K21.9 Gastro-esophageal reflux disease without esophagitis
CPT/HCPCS: 81003; 81025; 87086; 99213; G0463

== ENCOUNTER 2023-06-01 17:00 | Emergency (ER) | payer OTHER, SELFPAY ==
[2023-06-01 17:07] VITALS: BP 148/91; PULSE 91; RESP 16; TEMP 37.2; O2SAT 99
--- NOTE | 2023-06-01 17:41 | ED.GENADULT ---
HPI - General Adult General Chief complaint: Unspecified Stated complaint: Exposure To Mold Time Seen by Provider: 06/01/23 17:30 Source: patient Mode of arrival: ambulatory Limitations: no limitations History of Present Illness HPI narrative: 22-year-old female presents with complaint of runny nose, nasal congestion, postnasal drainage and coughing. Patient states that her and her boyfriend both began starting having the same symptoms while cleaning bathroom. Patient states that her bathtub was clogged and water backed up into the tub. Had to have a nutrition services associate come. Patient is concerned that she was exposed to mold. History of asthma. Denies shortness of breath. All systems reviewed and negative except as noted above. Related Data Allergies Allergy/AdvReac Type Severity Reaction Status Date / Time No Known Allergies Allergy Verified 05/21/23 17:44 Review of Systems Review of Systems: CONSTITUTIONAL: Denies fever, chills, or sweats. EYES: Denies visual changes, redness, or discharge. ENT: Reports rhinorrhea, congestion. Denies sore throat, or otalgia. CARDIOVASCULAR: Denies chest pain, palpitations, or edema. RESPIRATORY: reports cough. Denies dyspnea. GASTROINTESTINAL: Denies abdominal pain, nausea, vomiting, or diarrhea. GENITOURINARY: Denies dysuria or hematuria. SKIN: Denies rash or itching. MUSCULOSKELETAL: Denies back pain, joint pain, or myalgia. NEUROLOGIC: Denies headache, numbness, or weakness. PSYCHIATRIC: Denies anxiety or depression. All other systems reviewed are negative, except as documented in HPI. [facility] Past Medical History Medical History GERD (gastroesophageal reflux disease) UTI (urinary tract infection) Surgical History Surgical History History of adenoidectomy History of ear surgery RT Hx of tonsillectomy Family History Family History Father Learning disabilities Diabetes mellitus Mother Cerebral palsy Diabetes mellitus Social History Social History Smoking status: Never smoker Tobacco type: cigarettes Second hand tobacco smoke exposure: No Alcohol intake: never Substance use: current Substance use type: marijuana Living arrangements: with family Occupation/Education: occupation Gender identity (if verbalized by the patient): Female Sexual Orientation (if Verbalized by the Patient): Straight or Heterosexual Comments At time of signature, agree with nursing past medical, surgical, social and family history. There is no relevant family history pertinent to the presenting complaint. Exam Narrative: GENERAL: This is a well-nourished, well-developed patient, in no apparent distress. HEAD: normocephalic, atraumatic. EYES: PERRL. Sclera clear/white. Vision is grossly intact. EARS: External ears normal, auditory canals clear and without drainage, TMs normal without perforation. Hearing grossly intact. NOSE: External nose normal with clear nasal drainage THROAT: Mucous membranes moist, posterior pharynx clear. NECK: Neck supple, non-tender without lymphadenopathy, masses or thyromegaly. CARDIOVASCULAR: Regular rate and rhythm without murmurs, gallops, or rubs. RESPIRATORY: Clear to auscultation. Breath sounds equal bilaterally. No wheezes, rales, or rhonchi. SKIN: warm, Dry, intact with no suspicious lesions or rash, good texture and turgor. NEURO: awake, alert, and oriented to person, place and time. There were no obvious focal neurologic abnormalities. EXTREMITIES: No joint tenderness, effusion, or edema noted. Course Course Level of Care: Express Care Visit Vital Signs Vital signs: Vital Signs Temperature 37.2 C 06/01/23 17:07 Pulse Rate 91 06/01/23 17:07 Respiratory Rate 16 03/2
== END 2023-06-01 17:36 | disposition home or self-care (01) ==
PROVIDERS: Emergency Provider Nurse Practitioner Family
DX: T78.40XA Allergy, unspecified, initial encounter (principal); Z77.120 Contact with and (suspected) exposure to mold (toxic); K21.9 Gastro-esophageal reflux disease without esophagitis; F12.90 Cannabis use, unspecified, uncomplicated
CPT/HCPCS: 99213; G0463

== ENCOUNTER 2023-08-26 17:03 | Emergency (ER) | payer OTHER, SELFPAY ==
--- NOTE | 2023-08-26 17:09 | ED.FEMALEGU ---
HPI - Female Genitourinary General Chief complaint: Urogenital-Female Stated complaint: Urinary Problems Time Seen by Provider: 08/26/23 17:21 Source: patient and RN notes reviewed Mode of arrival: ambulatory Limitations: no limitations History of Present Illness HPI Narrative: 23 year old female presents with concern for UTI. Reports dysuria, frequency for 3 days. She has been taking AZO she has not taken any since yesterday. She denies fever, back pain, nausea, vomiting, abdominal pain. She denies abnormal vaginal discharge. Reports history of frequent urinary tract infections. MD elicited complaint: UTI Related Data Home Medications Medication Instructions Recorded Confirmed medroxyprogesterone 150 mg/mL 150 mg IM DIRECTED 08/26/23 08/26/23 intramuscular syringe sertraline 50 mg tablet 50 mg PO DAILY 08/26/23 08/26/23 Allergies Allergy/AdvReac Type Severity Reaction Status Date / Time No Known Allergies Allergy Verified 08/26/23 17:11 Review of Systems Review of Systems: CONSTITUTIONAL: Denies malaise, chills, sweats, or fever. CARDIOVASCULAR: Denies chest pain, palpitations, or edema. RESPIRATORY: Denies cough or dyspnea. GASTROINTESTINAL: Denies abdominal pain, nausea, vomiting, diarrhea GENITOURINARY: Reports dysuria, frequency. Denies urgency, suprapubic pressure. Denies flank pain or hematuria. SKIN: Denies rash or itching. MUSCULOSKELETAL: Denies back pain or myalgia. All systems reviewed & are unremarkable except as noted in HPI and below PMFSH Past Medical History Medical History GERD (gastroesophageal reflux disease) UTI (urinary tract infection) Surgical History Surgical History History of adenoidectomy History of ear surgery RT Hx of tonsillectomy Family History Family History Father Learning disabilities Diabetes mellitus Mother Cerebral palsy Diabetes mellitus Social History Social History Smoking status: Never smoker Tobacco type: cigarettes Second hand tobacco smoke exposure: No Alcohol intake: never Substance use: current Substance use type: marijuana Living arrangements: with family Occupation/Education: occupation Gender identity (if verbalized by the patient): Female Sexual Orientation (if Verbalized by the Patient): Straight or Heterosexual Comments At time of signature, agree with nursing past medical, surgical, social and family history. There is no relevant family history pertinent to the presenting complaint Exam Narrative: GENERAL: Well-appearing, well-nourished, and in no acute distress. HEAD: Normocephalic. EYES: PERRLA, conjunctivae clear. NECK: Supple. No lymphadenopathy CHEST: Clear to auscultation. No respiratory distress. HEART: Regular rate and rhythm. ABDOMEN: Soft, nontender upon palpation, nondistended, normal active bowel sounds, no palpable or pulsatile masses, no guarding. No CVA tenderness SKIN: Warm, dry, no rash. NEURO: Alert and oriented x3. PSYCH: Normal mood and affect Course Course Emergency Course: I discussed urinalysis results with patient, urinalysis is normal, however in patient's history of this clinic she has had a normal urinalysis with positive culture. Patient would like to start antibiotic today given her symptoms and her history of infection, she understands if her culture is negative she can stop the antibiotic Patient is aware of diagnosis, understands and agrees to treatment plan. Anticipatory guidance given. Patient agrees to follow-up as directed and is aware of reasons to seek care at the emergency department. Portions of this record may have been created with voice recognition software Level of Care: Express Care Visit Vital Signs Vi
[2023-08-26 17:11] VITALS: BP 140/75; PULSE 101; RESP 16; TEMP 36.9; O2SAT 99
== END 2023-08-26 17:35 | disposition home or self-care (01) ==
PROVIDERS: Emergency Provider Nurse Practitioner
DX: R30.0 Dysuria (principal); R35.0 Frequency of micturition; F12.90 Cannabis use, unspecified, uncomplicated; K21.9 Gastro-esophageal reflux disease without esophagitis; Z87.440 Personal history of urinary (tract) infections
CPT/HCPCS: 81003; 87086; 99213; G0463

== ENCOUNTER 2023-09-23 19:45 | Emergency (ER) | payer OTHER, SELFPAY ==
[2023-09-23 19:58] VITALS: BP 136/84; PULSE 92; RESP 16; TEMP 36.6; O2SAT 100
--- NOTE | 2023-09-23 20:26 | ED.GENADULT ---
HPI - General Adult General Chief complaint: Upper Respiratory Infection Stated complaint: Sinus Source: patient Mode of arrival: ambulatory Limitations: no limitations History of Present Illness HPI narrative: Patient presents for evaluation of sinus symptoms for last week. Symptoms include sinus congestion, frontal headache, thick yellow drainage from the nares. No fever, chills, nausea, vomiting. No recent sick contacts to her knowledge. She does not smoke. She tried [id number] agents without considerable improvement thereafter. Related Data Home Medications Medication Instructions Recorded Confirmed medroxyprogesterone 150 mg/mL 150 mg IM DIRECTED 08/26/23 09/23/23 intramuscular syringe Allergies Allergy/AdvReac Type Severity Reaction Status Date / Time No Known Allergies Allergy Verified 09/23/23 19:59 Review of Systems Review of Systems: CONSTITUTIONAL: Denies fever, chills, or sweats. EYES: Denies visual changes, redness, or discharge. ENT: reports sinus congestion, thick yellow drainage from the nares. CARDIOVASCULAR: Denies chest pain, palpitations, or edema. RESPIRATORY: Denies cough or dyspnea. GASTROINTESTINAL: Denies abdominal pain, nausea, vomiting, or diarrhea. GENITOURINARY: Denies dysuria or hematuria. SKIN: Denies rash or itching. MUSCULOSKELETAL: Denies back pain, joint pain, or myalgia. NEUROLOGIC: Reports headache. Denies numbness, dizziness, or weakness. PSYCHIATRIC: Denies anxiety or depression. [facility] Past Medical History Medical History GERD (gastroesophageal reflux disease) UTI (urinary tract infection) Surgical History Surgical History History of adenoidectomy History of ear surgery RT Hx of tonsillectomy Family History Family History Father Learning disabilities Diabetes mellitus Mother Cerebral palsy Diabetes mellitus Social History Social History Smoking status: Never smoker Tobacco type: cigarettes Second hand tobacco smoke exposure: No Alcohol intake: never Substance use: current Substance use type: marijuana Living arrangements: with family Occupation/Education: occupation Gender identity (if verbalized by the patient): Female Sexual Orientation (if Verbalized by the Patient): Straight or Heterosexual Exam Narrative: GENERAL: Well-appearing, well-nourished, and in no acute distress. HEAD: Normocephalic, atraumatic. EYES: PERRLA and EOMI. ENT: There is thick yellow drainage in the bilateral nares. Mucous membranes moist. Oropharynx without tonsillar hypertrophy exudate or other lesions. Bilateral TMs pearly stevenson nonbulging NECK: Supple. No adenopathy or masses. No carotid bruits or JVD CHEST: Clear to auscultation. No respiratory distress. No wheezes rales or rhonchi HEART: Regular rate and rhythm. No murmur heard. Normal peripheral pulses. ABDOMEN: Soft, nontender, nondistended, normal active bowel sounds. EXTREMITIES: Normal range of motion. No edema. SKIN: Warm, dry, no rash. NEURO: No focal deficits. Alert and oriented x3. PSYCH: Normal mood and affect. Course Course Emergency Course: This is a 23-year-old female who presented for evaluation of sinus symptoms. She meets criteria for bacterial sinusitis based upon duration of time in which she has been symptomatic and mucopurulent discharge. Will send in Augmentin. Flonase and Sudafed may help. Follow up with primary provider. Go to the ER for worsening symptoms. Patient in agreement plan of care Level of Care: Express Care Visit Vital Signs Vital signs: Vital Signs Temperature 36.6 C 09/23/23 19:58 Pulse Rate 92 09/23/23 19:58 Respiratory Rate 16 09/23/23 19:58 Blood Pressure 136/8
[2023-09-23 20:33] LABS: EDINFLUASCREEN Negative; EDINFLUBSCREEN Negative
== END 2023-09-23 20:25 | disposition home or self-care (01) ==
PROVIDERS: Emergency Provider Nurse Practitioner
DX: J32.9 Chronic sinusitis, unspecified (principal); Z20.822 Contact with and (suspected) exposure to COVID-19; F12.90 Cannabis use, unspecified, uncomplicated; K21.9 Gastro-esophageal reflux disease without esophagitis
CPT/HCPCS: 87426; 87804; 99213; G0463

== ENCOUNTER 2023-10-28 17:20 | Emergency (ER) | payer OTHER, SELFPAY ==
--- NOTE | 2023-10-28 17:22 | ED.URI ---
HPI - URI/Sore Throat General Chief Complaint: Upper Respiratory Infection Stated Complaint: Sore Throat Time Seen by Provider: 10/28/23 17:21 Source: patient Mode of arrival: ambulatory Limitations: no limitations History of Present Illness HPI Narrative: Yannick is a 23-year-old female patient presenting to the clinic today with complaints of a sore throat, runny nose, and cough that started yesterday. Is concerned about strep. States as younger child she got strep frequently and had her tonsils taken out. She denies any fever but does report a headache. Does not feel as though she has COVID and she has not been exposed any one with COVID. She works at a daycare. History of asthma. MD elicited complaint: sore throat and nasal congestion Related Data Home Medications Medication Instructions Recorded Confirmed medroxyprogesterone 150 mg/mL 150 mg IM DIRECTED 08/26/23 10/28/23 intramuscular syringe Allergies Allergy/AdvReac Type Severity Reaction Status Date / Time No Known Allergies Allergy Verified 10/28/23 17:27 Review of Systems Review of Systems: Pertinent positives per HPI. Patient denies any fever, chills, rash, headache, visual changes, dizziness, shortness of breath, chest pain, palpitations, nausea, vomiting, diarrhea, constipation, abdominal pain, or any urinary issues. [facility] Past Medical History Medical History GERD (gastroesophageal reflux disease) UTI (urinary tract infection) Surgical History Surgical History History of adenoidectomy History of ear surgery RT Hx of tonsillectomy Family History Family History Father Learning disabilities Diabetes mellitus Mother Cerebral palsy Diabetes mellitus Social History Social History Smoking status: Never smoker Tobacco type: cigarettes Second hand tobacco smoke exposure: No Alcohol intake: never Substance use: current Substance use type: marijuana Living arrangements: with family Occupation/Education: occupation Gender identity (if verbalized by the patient): Female Sexual Orientation (if Verbalized by the Patient): Straight or Heterosexual Comments At the time of my signature, I reviewed and agree with the nursing past medical, surgical, social, and family history. There is no relevant family history pertinent to the patient complaint. Exam Narrative: General: Well-developed, well nourished, in no apparent distress Head: Normocephalic, atraumatic Eyes: Pupils equally round and reactive to light bilaterally, EOM intact, sclera and conjunctive clear, no discharge, lids normal Ears: TMs intact and clear, ear canals clear, no drainage, grossly hearing normal. Nose: Nares patent, clear nasal discharge, no inflammation, no sinus tenderness. Mouth: Oral pharynxwithout lesions or masses, good dentition, MMM. Postnasal drip, tonsils surgically absent Neck: Supple, trachea midline, no enlargement of anterior or posterior cervical nodes, no thyroid masses or goiter palpable. Cardio: Regular rate and rhythm, s1 and s2 normal, no murmur appreciated. Resp: Faint wheezing in the left upper lobe, no rhonchi, rales, or rubs Course Course Emergency Course: Portions of this record may have been created with voice recognition software. Level of Care: Express Care Visit Vital Signs Vital signs: Vital Signs Temperature 37.4 C 10/28/23 17:27 Pulse Rate 125 H 10/28/23 17:27 Respiratory Rate 16 10/28/23 17:27 Blood Pressure 149/94 H 10/28/23 17:27 Pulse Oximetry 99 10/28/23 17:27 Oxygen Delivery Room Air 10/28/23 17:27 Temperature 37.4 C 10/28/23 17:27 Pulse Rate 125 H 10/28/23 17:27 Respiratory Rate 16 10/28/23 17:27 Blood Pressure 149/94 H
[2023-10-28 17:27] VITALS: BP 149/94; PULSE 125; RESP 16; TEMP 37.4; O2SAT 99
[2023-10-28 17:42] LABS: EDSTREPNEGPOS1 Negative
== END 2023-10-28 17:49 | disposition home or self-care (01) ==
PROVIDERS: Emergency Provider Nurse Practitioner Family
DX: J06.9 Acute upper respiratory infection, unspecified (principal); J02.9 Acute pharyngitis, unspecified; J45.909 Unspecified asthma, uncomplicated; F12.90 Cannabis use, unspecified, uncomplicated; K21.9 Gastro-esophageal reflux disease without esophagitis
CPT/HCPCS: 87081; 87880; 99213; G0463

== ENCOUNTER 2024-02-24 18:27 | Emergency (ER) | payer OTHER, SELFPAY ==
--- NOTE | 2024-02-24 18:28 | ED.FEMALEGU ---
HPI - Female Genitourinary General Chief complaint: Urogenital-Female Stated complaint: UTI Time Seen by Provider: 02/24/24 18:27 Source: patient Mode of arrival: ambulatory Limitations: no limitations History of Present Illness HPI Narrative: Yannick is a 21-year-old female patient presenting to clinic today with complaints of burning with urination, urinary frequency, and urinary urgency for the past 3 days. She denies any fever, chills, abdominal pain, or flank pain. She denies any vaginal discharge. She has not concern for any sexually transmitted infections. Last menstrual period is unknown. She reports she has been taking the Depo-Medrol shot for the past 7 years and just stopped 3 months ago and she has yet to have a menstrual cycle. Related Data Home Medications ?Medication ?Instructions ?Recorded ?Confirmed ?Last Taken ?Type medroxyprogesterone 150 mg/mL 150 mg IM DIRECTED 08/26/23 02/24/24 Unknown History intramuscular syringe Allergies Allergy/AdvReac Type Severity Reaction Status Date / Time No Known Allergies Allergy Verified 02/24/24 18:29 Review of Systems Review of Systems: Pertinent positives per HPI. Patient denies any fever, chills, rash, headache, visual changes, dizziness, cough, runny nose, sore throat, shortness of breath, chest pain, palpitations, nausea, vomiting, diarrhea, constipation, abdominal pain, or any urinary issues. [facility] Past Medical History Medical History UTI (urinary tract infection) GERD (gastroesophageal reflux disease) Surgical History Surgical History History of ear surgery RT History of adenoidectomy Hx of tonsillectomy Family History Family History Father Learning disabilities Diabetes mellitus Mother Cerebral palsy Diabetes mellitus Social History Social History Smoking status: Never smoker Tobacco type: cigarettes Second hand tobacco smoke exposure: No Alcohol intake: never Substance use: current Substance use type: marijuana Living arrangements: with family Occupation/Education: occupation Gender identity (if verbalized by the patient): Female Sexual Orientation (if Verbalized by the Patient): Straight or Heterosexual Comments At the time of my signature, I reviewed and agree with the nursing past medical, surgical, social, and family history. There is no relevant family history pertinent to the patient complaint. Exam Narrative: General: Well-developed, obese, in no apparent distress. Head: Normocephalic, atraumatic. Cardio: Regular rate and rhythm, s1 and s2 normal, no murmur appreciated. Resp: Clear to auscultation bilaterally, no rhonchi, rales, wheezing or rubs. Abdomen: Soft, pliable, bowel sounds present in all quadrants, non-tender to palpation, no organomegly, no CVAT tenderness. : Deferred Course Course Emergency Course: Portions of this record may have been created with voice recognition software. Level of Care: Express Care Visit Vital Signs Vital signs: Vital Signs Temperature 36.2 C L 02/24/24 18:40 Pulse Rate 93 02/24/24 18:40 Respiratory Rate 18 02/24/24 18:40 Blood Pressure 155/81 H 02/24/24 18:40 Pulse Oximetry 100 02/24/24 18:40 Oxygen Delivery Room Air 02/24/24 18:40 Temperature 36.2 C L 02/24/24 18:40 Pulse Rate 93 02/24/24 18:40 Respiratory Rate 18 02/24/24 18:40 Blood Pressure 155/81 H 02/24/24 18:40 Pulse Oximetry 100 02/24/24 18:40 Oxygen Delivery Room Air 02/24/24 18:40 Vital signs reviewed MDM - Female Genitourinary MDM Narrative Medical decision making narrative: At the time of visit patient is resting comfortably on the exam table. Patient appears to be nontoxic. Labs: Urinalysis is negative for any sign of infection. Bedside test was negative. Plan: No sign of urinary tract infection in the clinic today however patient is having urinary symptoms. Recommend taking [id number] azo as needed for her symptoms and following up with her primary care doctor next week if symptoms persist. Supportive measures were discussed with the patient and they voiced understanding discharge instructions and agrees to treatment plan. Return precautions reviewed Differential Diagnosis Differential diagnosis: Likely urinary tract infection and cystitis Lab Data Labs: Lab Results 02/24/24 Range/Units 18:41 POC Urine Color Yellow POC Urine Clarity Clear POC Urine pH 6.0 POC Ur Specif [place] 1.030 POC Urine Protein Negative (Negative) POC Ur Glucose (UA) Negative (Negative) POC Urine Ketones Negative (Negative) POC Urine Blood Negative (Negative) POC Urine Nitrite Negative (Negative) POC Urine Bilirubin Negative (Negative) POC Urine Urobilinogen 0.2 POC U Leukocyte Esteras Negative (Negative) Discharge Plan Discharge Clinical Impression: Symptoms of urinary tract infection Patient Disposition: Home, Self-Care Condition: Stable Instructions: Antibiotic Form, Dysuria (ED), Urinary Urgency and Frequency (DC) Additional Instructions: Urinalysis is negative for any sign of infection. Bedside test is negative. May take [id number]-dlaprva azo for symptoms Increase fluids and stay well hydrated-avoid drinking sugary drinks and caffeinated beverages Wipe front to back. May use wet wipes. Avoid tub baths If sexually active- pee before and after intercourse. Wear cotton panties Avoid tight clothing up against the genitals Follow up with your PCP in 1 week if symptoms persist. Patient Language: Latvian Prescriptions: No Action medroxyprogesterone 150 mg/mL syringe 150 mg IM DIRECTED Rx Instructions: last dosw 06/28 Follow-up/Referrals: UNKNOWN,DOCTOR [Non-Staff] - Time of Disposition: 18:48 Quality NIHSS Nursing Documentation ED NIHSS nursing documentation: reviewed/agree
[2024-02-24 18:40] VITALS: BP 155/81; PULSE 93; RESP 18; TEMP 36.2; O2SAT 100
[2024-02-24 18:42] LABS: EDUAAPPEAR Clear; EDUABILI Negative (Negative); EDUABLOOD Negative (Negative); EDUACOLOR1 Yellow; EDUAGLUCOSE Negative (Negative); EDUAKETONE Negative (Negative); EDUALEUKO Negative (Negative); EDUANITRATE Negative (Negative); EDUAPROTEIN Negative (Negative); EDUAUROBILI 0.2
[2024-02-24 18:48] LABS: BEDSIDEPREGUCG Negative (Negative)
== END 2024-02-24 18:55 | disposition home or self-care (01) ==
PROVIDERS: Emergency Provider Nurse Practitioner Family
DX: R30.0 Dysuria (principal); R35.0 Frequency of micturition; R39.15 Urgency of urination; K21.9 Gastro-esophageal reflux disease without esophagitis
CPT/HCPCS: 81003; 81025; 87086; 99213; G0463

== ENCOUNTER 2024-09-24 15:05 | Emergency (ER) | payer OTHER, SELFPAY ==
--- NOTE | 2024-09-24 15:09 | ED_ITS ---
HPI - Female Genitourinary General Chief complaint: Urogenital-Female Stated complaint: Urinary Irritation Time Seen by Provider: 09/24/24 15:08 Source: patient Mode of arrival: ambulatory Limitations: no limitations History of Present Illness HPI Narrative: Yannick is a 24-year-old female patient presenting to the clinic today with complaints urinary frequency, burning with urination, urinary urgency, low back pain, vaginal odor, and vaginal discharge x1 week. Has been taking azo for her symptoms. States she has been having some incontinence and spends several hours in the bathroom. Denies any fevers, chills, or body aches. No abdominal pain. No concern for STIs. Has been with the same male partner for 7 years. Has an appointment with her OBGYN on of this week. Last azo pill was this morning. Related Data Home Medications ?Medication ?Instructions ?Recorded ?Confirmed ?Last Taken ?Type No Home Medications 09/24/24 09/24/24 Unknown History Allergies Allergy/AdvReac Type Severity Reaction Status Date / Time No Known Allergies Allergy Verified 09/24/24 15:17 Review of Systems Review of Systems: Pertinent positives per HPI. Patient denies any fever, chills, rash, headache, visual changes, dizziness, cough, runny nose, sore throat, shortness of breath, chest pain, palpitations, nausea, vomiting, diarrhea, constipation, abdominal pain. PMFSH Past Medical History Medical History UTI (urinary tract infection) GERD (gastroesophageal reflux disease) Surgical History Surgical History History of ear surgery RT History of adenoidectomy Hx of tonsillectomy Family History Family History Father Learning disabilities Diabetes mellitus Mother Cerebral palsy Diabetes mellitus Social History Social History Smoking status: Never smoker Tobacco type: cigarettes Second hand tobacco smoke exposure: No Alcohol intake: never Substance use: current Substance use type: marijuana Living arrangements: with family Occupation/Education: occupation Gender identity (if verbalized by the patient): Female Sexual Orientation (if Verbalized by the Patient): Straight or Heterosexual Comments At the time of my signature, I reviewed and agree with the nursing past medical, surgical, social, and family history. There is no relevant family history pertinent to the patient complaint. Exam Narrative: General: Well-developed, morbidly obese, in no apparent distress. Head: Normocephalic, atraumatic. Cardio: Regular rate and rhythm, s1 and s2 normal, no murmur appreciated. Resp: Clear to auscultation bilaterally, no rhonchi, rales, wheezing or rubs. Abdomen: Soft, pliable, bowel sounds present in all quadrants, lower abdomen mildly tender to palpation, no organomegly, no CVAT tenderness. : Deferred-patient declined exam Course Course Emergency Course: Portions of this record may have been created with voice recognition software. Level of Care: Express Care Visit Vital Signs Vital signs: Vital Signs Temperature 37.0 C 09/24/24 15:15 Pulse Rate 92 09/24/24 15:15 Respiratory Rate 18 09/24/24 15:15 Blood Pressure 147/95 H 09/24/24 15:15 Pulse Oximetry 98 09/24/24 15:15 Oxygen Delivery Room Air 09/24/24 15:15 Temperature 37.0 C 09/24/24 15:15 Pulse Rate 92 09/24/24 15:15 Respiratory Rate 18 09/24/24 15:15 Blood Pressure 147/95 H 09/24/24 15:15 Pulse Oximetry 98 09/24/24 15:15 Oxygen Delivery Room Air 09/24/24 15:15 Vital signs reviewed MDM - Female Genitourinary MDM Narrative Medical decision making narrative: At the time of visit patient is resting comfortably on the exam table. Patient appears to be nontoxic. Patient took azo this morning-unable to perform a UA dip at this time as her urine is bright orange. Denies any fever, nausea/vomiting, flank pain, or abdominal pain. Is reporting burning with urination, frequency, and urgency. Also reporting vaginal discharge and odor. States she is having slight itchiness in the vaginal area as well. I reviewed patients last 3 cultures and they were all negative for any growth of invading bacteria and she was having similar UTI symptoms at that time. Patient declined pelvic exam, is comfortable with swabbing herself for BV. Urine culture, bedside , and bacterial vaginosis swab was ordered. Will hold off on any treatment at this time and patient may continue Azo until we get urine culture/BV swab results. Patient upset and states she needs an antibiotic. Stated, Every time I see you, I have seen you twice now, you won't give me the medication I need to treat my uti, when I see the lady providers they understand my symptoms and give me the antibiotics. Explained again that her last 3 cultures were negative for any invading bacteria in her urine and we will send her urine for culture. Patient stated I am just going to go ahead and leave if your not going to give me any medications, this is just a big waste of my time. Told the patient that this was not a waste of her time and she has had an appropriate assessment, BV testing, urine sent for testing, and bedside testing. Attempted to explain that giving antibiotics when they are not needed lead to antibiotics resistance, however patient did not want to listen to what was being said and asked to leave. Nurse in with discharge instructions. Labs: Bedside test was negative in the clinic today. Urine culture and bacterial vaginosis swab was sent to the lab. Plan: I suspect patient has UTI symptoms vaginal odor and discharge. Will wait for test results to determine appropriate treatment. May continue taking azo for symptoms. Patient to follow-up with her OBGYN on as scheduled. Supportive measures were discussed with the patient and they voiced understanding discharge instructions and agrees to treatment plan. Return precautions reviewed Differential Diagnosis Differential diagnosis: Likely urinary tract infection, bacterial vaginosis, trichomoniasis, vaginitis, cystitis and other (OAB, stress incontinence, overflow incontinence ) Lab Data Labs: Lab Results 09/24/24 09/24/24 Range/Units 15:23 15:33 POC Urine HCG, Qual Negative (Negative) Bact Vaginosis Panel Pending Discharge Plan Discharge Clinical Impression: Symptoms of urinary tract infection, Vaginal discharge, Vaginal odor Patient Disposition: Home Condition: Stable Instructions: Antibiotic Form, Dysuria (ED), Vaginal Discharge (ED), Urinary Urgency and Frequency (DC) Additional Instructions: You declined STI testing in the clinic today. Unable to dip urine due to you taking azo in the clinic today We will send urine for culture. Last couple cultures have come back negative for any invading bacteria in your urine. If this comes back positive we will contact him place you on antibiotics at that time Swab for bacterial vaginosis was sent to the lab-if this comes back positive we will contact you in place you on appropriate medication Bedside test was negative in the clinic today. May continue taking azo for your symptoms Increase fluids and stay well hydrated Wipe front to back. May use wet wipes. Avoid tub baths If sexually active- pee before and after intercourse. Wear cotton panties Avoid tight clothing up against the genitals Avoid any sexual activity- includes oral, anal, or vaginal intercourse until you get results back and have completed any additional recommended treatment regimens. Follow-up with your OBGYN on as scheduled Patient Language: Bulgarian Prescriptions: No Action No Home Medications Follow-up/Referrals: UNKNOWN,DOCTOR [Primary Care Provider] - Time of Disposition: 15:34 Quality NIHSS Nursing Documentation ED NIHSS nursing documentation: reviewed/agree
[2024-09-24 15:15] VITALS: BP 147/95; PULSE 92; RESP 18; TEMP 37; O2SAT 98
[2024-09-24 15:33] LABS: BEDSIDEPREGUCG Negative (Negative)
== END 2024-09-24 15:42 | disposition home or self-care (01) ==
PROVIDERS: Emergency Provider Nurse Practitioner Family
DX: R30.0 Dysuria (principal); R35.0 Frequency of micturition; R39.15 Urgency of urination; N89.8 Other specified noninflammatory disorders of vagina; K21.9 Gastro-esophageal reflux disease without esophagitis; F12.90 Cannabis use, unspecified, uncomplicated
CPT/HCPCS: 81025; 81513; 87086; 87798; 99213; G0463